=== PATIENT | male | born 1965 | race Caucasian/White ===

== ENCOUNTER 2023-10-11 01:15 | Emergency (ER) | payer MEDICAID, MEDICARE, OTHER ==
[~2023-10-11] VITALS: Ht 172.7 cm; Wt 70.0 kg
[~2023-10-11 01:15] MED LIST: ASPI-986 PO; ATOR10TA69 PO; DOCU250C14 MT; FERR-71 MT; HYDR-4001 MT; INSU100I28 SQ; LIP40 PO; METF500T PO; METO-396 PO
[2023-10-11 01:20] VITALS: O2SAT 98
[2023-10-11] MEDS: MORPHINE SULFATE 4 MG/ML INJ (FOR IV/IM USE) IV ONE (03:47)
[2023-10-11 03:49] VITALS: TEMP 98.2
[2023-10-11 05:44] VITALS: BP 118/75; PULSE 83; RESP 18
== END 2023-10-11 05:58 | disposition home or self-care (01) ==
LOC: ER 01:15
DX: M79.672 Pain in left foot (principal); M79.671 Pain in right foot; I25.2 Old myocardial infarction; Z98.890 Other specified postprocedural states
CPT/HCPCS: 99285; 93970; 96374; 73620; J2270

== ENCOUNTER 2024-03-12 03:30 | Emergency (ER) | payer MEDICARE ==
[~2024-03-12] VITALS: Ht 167.6 cm; Wt 68.5 kg
[2024-03-12 03:44] VITALS: O2SAT 99
[2024-03-12 03:57] VITALS: BP 119/76; PULSE 75; RESP 20; TEMP 36.83628; O2SAT 99
== END 2024-03-12 04:00 | disposition home or self-care (01) ==
LOC: ER 03:30
DX: S20.319A Abrasion of unspecified front wall of thorax, initial encounter (principal); I25.2 Old myocardial infarction; E78.00 Pure hypercholesterolemia, unspecified; Z79.899 Other long term (current) drug therapy; X58.XXXA Exposure to other specified factors, initial encounter; Y93.89 Activity, other specified; Y92.89 Other specified places as the place of occurrence of the external cause; Y99.8 Other external cause status
CPT/HCPCS: 99281